=== PATIENT | male | born 1940 | race Asian ===

== ENCOUNTER 2017-12-17 17:51 | Emergency (ER) | payer OTHER, BC ==
[~2017-12-17] VITALS: Ht 172.7 cm; Wt 72.6 kg
[2017-12-17 18:09] LABS: PLATELET COUNT 242 K/uL (142-355)
[2017-12-17 18:18] LABS: POTASSIUM 3.7 mmol/L (3.6-5.2)
[2017-12-17 19:10] VITALS: BP 141/74; TEMP 97.6
[2017-12-18] MEDS ORDERED: AMLO2.5T PO (01:10)
[2017-12-18] MEDS ORDERED: ELIQUIS5 MG PO (01:11)
[2017-12-18] MEDS ORDERED: SENSIPAR30 MG PO (01:13)
[2017-12-18] MEDS ORDERED: LIPITOR80 MG PO (01:13)
[2017-12-18] MEDS ORDERED: CLON0.5T36 PO (01:20)
[2017-12-18] MEDS ORDERED: DIVA125C PO (01:22)
[2017-12-18] MEDS ORDERED: DULOXETINE HYDR20 MG PO (01:23)
[2017-12-18] MEDS ORDERED: DUTASTERIDE0.5 MG PO (01:24)
[2017-12-18] MEDS ORDERED: LAMICTAL25 MG PO (01:25)
[2017-12-18] MEDS ORDERED: QUET25TA2 PO (01:27)
[2017-12-18] MEDS ORDERED: TAMSULOSIN0.4 MG PO (01:28)
[2017-12-18] MEDS ORDERED: ERGOCALCIF50000 UNIT PO (01:30)
[2017-12-18] MEDS ORDERED: TUSSIN100 MG/5 M PO (01:32)
[2017-12-18] MEDS ORDERED: HALO5INJ3 IM (01:34)
[2017-12-18] MEDS ORDERED: HYDR5TAB9 PO (01:36)
[2017-12-18] MEDS ORDERED: MAALOX ADVAN PO (01:43)
== END 2017-12-17 19:10 | disposition other institution (70) ==
LOC: ED 17:51
PROVIDERS: Family Medicine
DX: F03.91 Unspecified dementia, unspecified severity, with behavioral disturbance (principal); F60.3 Borderline personality disorder; Z04.6 Encounter for general psychiatric examination, requested by authority
CPT/HCPCS: 80053; 85027; 93005; 99285

== ENCOUNTER 2018-01-07 10:53 | Emergency (ER) | payer OTHER ==
[~2018-01-07] VITALS: Ht 175.3 cm; Wt 95.3 kg
[2018-01-07 10:53] VITALS: BP 142/86; TEMP 98.2
[~2018-01-07 10:53] MED LIST: AMLO2.5T PO; CLON0.5T36 PO; DIVA125C PO; DIVALPROEX500 MG PO; DULO30CA PO; DULOXETINE HYDR20 MG PO; DUTASTERIDE0.5 MG PO; ELIQUIS5 MG PO; ERGOCALCIF50000 UNIT PO; HALO5INJ3 IM; HYDR5TAB9 PO; LAMICTAL25 MG PO; LEVO0.0529 PO; LIPITOR80 MG PO; MAALOX ADVAN PO; QUET25TA2 PO; RISP0.25 PO; SENSIPAR30 MG PO; TAMSULOSIN0.4 MG PO; TUSSIN100 MG/5 M PO
[2018-01-09] MEDS ORDERED: RISP0.25 PO (16:17)
[2018-01-09] MEDS ORDERED: DIVALPROEX500 MG PO ×2 (16:17)
[2018-01-09] MEDS ORDERED: DULO30CA PO (16:17)
== END 2018-01-07 11:00 | disposition home or self-care (01) ==
LOC: ED 10:53
PROC: 2W3CX1Z Immobilization of Right Lower Arm using Splint (ICD-10-PCS; principal; 2018-01-07)
DX: S52.91XA Unspecified fracture of right forearm, initial encounter for closed fracture (principal); X58.XXXA Exposure to other specified factors, initial encounter; Y92.89 Other specified places as the place of occurrence of the external cause
CPT/HCPCS: 99283